=== PATIENT | male | born 1955 | race African-American/Black ===

== ENCOUNTER 2021-08-30 10:02 | Emergency (ER) | payer BC ==
[~2021-08-30] VITALS: Ht 175.3 cm; Wt 87.0 kg
[2021-08-30 10:11] VITALS: BP 152/64
[2021-08-30] MEDS ORDERED: CARBAMIDE PEROXIDE 6.5% OTIC SOLN 15ML RIGHT EAR ONE (10:15)
== END 2021-08-30 14:09 | disposition home or self-care (01) ==
LOC: ER 11:00
DX: H61.23 Impacted cerumen, bilateral (principal); I10 Essential (primary) hypertension
CPT/HCPCS: 99281

== ENCOUNTER 2022-01-11 01:04 | Emergency (ER) | payer BC ==
[~2022-01-11] VITALS: Ht 175.3 cm; Wt 87.0 kg
[2022-01-11] MEDS ORDERED: KETOROLAC 60MG/2ML VIAL IM ONE (06:00)
[2022-01-11 06:10] VITALS: BP 188/86
[2022-01-11] MEDS ORDERED: IBUP-2030 PO (07:16)
[2022-01-11] MEDS ORDERED: OXYC-100 PO (07:16)
== END 2022-01-11 07:48 | disposition home or self-care (01) ==
LOC: ER 01:26
DX: M54.2 Cervicalgia (principal); I10 Essential (primary) hypertension
CPT/HCPCS: 72040; 96372; 99283; J1885